=== PATIENT | female | born 1995 | race Hispanic/Latino ===

== ENCOUNTER 2018-02-11 09:34 | Day surgery (SDC) | payer BC, SELFPAY ==
[2018-02-11] MEDS ORDERED: NA CHLORIDE 0.9% 1,000 ML ONE (10:21)
[2018-02-11] MEDS ORDERED: ONDANSETRON 4 MG/2 ML VIAL ONE ×2 (10:21→13:23)
[2018-02-11] MEDS ORDERED: MORPHINE 4 MG/ML SYR ONE (10:21)
[2018-02-11 10:27] LABS: Absolute Lymphocytes (CBC) 1.9 K/uL (0.7-4.9); Absolute Monocytes 0.5 K/uL (0.1-1.3); Absolute Neutrophil 6.8 K/uL (1.8-8.0); Basophils % 0.5 % (0-1.3); Eosinophils % 0.5 % (0-4.4); Hematocrit 42.7 % (36.0-45.0); Lymphocytes % 20.4 % (15.3-44.8); MCH 23.7 pg (27.0-35.0); MCV 75.1 fL (80-100); MPV 9.1 fL (7.6-11.3); Monocytes % 5.7 % (3.3-12.3); RBC Red Blood Cell Count 5.68 M/uL (3.86-4.86)
[2018-02-11] MEDS ORDERED: ONDANSETRON 4 MG/2 ML VIAL IV PRN (10:27)
[2018-02-11] MEDS ORDERED: ACETAMINOPHEN 650MG/RECT SUPP RECT PRN (10:27)
[2018-02-11] MEDS ORDERED: Morphine 2 MG/2 ML SYR IV PRN (10:27)
[2018-02-11 10:33] LABS: Protime INR 0.98
[2018-02-11 10:37] LABS: Potassium 3.5 mEq/L (3.6-5.0)
[2018-02-11] MEDS ORDERED: CEFTRIAXONE 1 GM/NS 50 ML 1 GM/50 ML BAG IV SCH (11:00)
[2018-02-11] MEDS ORDERED: NA CHLORIDE 0.9% 1,000 ML IV SCH (11:00)
--- NOTE | 2018-02-11 11:11 | RAD REPORT ---
EXAM DESCRIPTION: RAD - Abdomen 1 View (KUB) - 02/11/2018 10:42 am CLINICAL HISTORY: Flank pain, abdominal pain, kidney stone history COMPARISON: None. FINDINGS: Bowel gas pattern is non-specific. No obstruction, free air or pneumatosis. No calcificat ions are identifiable overlying the renal shadows. 2 calcifications in the right side of the pelvis a re seen. These are more likely to be phleboliths based on position however a distal right ureteral ca lculus is possible depending on patient's clinical presentation. No significant bony findings IMPRESSION: No renal calculi identified and no ureteral calculi confirmed. 2 calcific densities in the right pelvis are more medial than expected for the ureter but are still p otentially distal ureteral calculi if there are right renal colic symptoms.
--- NOTE | 2018-02-11 11:16 | EDPHYS ---
Physician Documentation [facility] Name: Cecy Castro Age: 22 yrs Sex: Female : 1995 Arrival Date: 02/11/2018 Time: 09:37 Bed 24 Private MD: ED Physician Imani Colunga HPI: 02/11 10:05 This 22 yrs old Female presents to ER via Ambulatory with complaints of cp Possible Kidney Stone. 10:05 The patient complains of pain in the right mid back. cp 10:05 Onset: The symptoms/episode began/occurred last week. Associated signs and symptoms: cp Pertinent positives: nausea, vomiting, Pertinent negatives: fever. Patient reports she was seen at [place] and diagnosed with right ureteral stone this past Saturday. Patient called office of Dr Rico this morning due to continued symptoms and was referred to come to ED. 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 - Social history:: Smoking status: Patient/guardian denies using tobacco, Patient uses alcohol, occasionally. Patient/guardian denies using street drugs. ROS: 10:12 Constitutional: Negative for body aches, chills, fever, poor PO intake. cp 10:12 Eyes: Negative for injury, pain, redness, and discharge. cp 10:12 ENT: Negative for drainage from ear(s), ear pain, sore throat, difficulty swallowing, difficulty handling secretions. 10:12 Cardiovascular: Negative for chest pain, edema, palpitations. 10:12 Respiratory: Negative for cough, shortness of breath, wheezing. 10:12 Abdomen/GI: Positive for abdominal pain, nausea, vomiting, Negative for diarrhea, constipation, anorexia, black/tarry stool, rectal bleeding. 10:12 Back: Positive for flank pain, on the right. 10:12 Skin: Negative for cellulitis, rash. 10:12 Neuro: Negative for altered mental status, headache, weakness. 10:12 All other systems are negative. Exam: 10:15 Constitutional: The patient appears in no acute distress, alert, awake, non-toxic, well cp developed, well nourished, uncomfortable. 10:15 Head/Face: Normocephalic, atraumatic. cp 10:15 Eyes: Periorbital structures: appear normal, Conjunctiva: normal, no exudate, no injection, Lids and lashes: appear normal, bilaterally. 10:15 ENT: External ear(s): are unremarkable, Nose: is normal, Mouth: is normal, Posterior pharynx: is normal, airway is patent, no erythema, no exudate. 10:15 Neck: ROM/movement: is normal, is supple, without pain, no range of motions limitations, no nuchal rigidity. 10:15 Chest/axilla: Inspection: normal, Palpation: is normal, no crepitus, no tenderness. 10:15 Cardiovascular: Rate: normal, Rhythm: regular, Heart sounds: murmur, not appreciated, Edema: is not appreciated. 10:15 Respiratory: the patient does not display signs of respiratory distress, Respirations: normal, no use of accessory muscles, no retractions, no splinting, no tachypnea, labored breathing, is not present, Breath sounds: are clear throughout, no decreased breath sounds, no stridor, no wheezing. 10:15 Abdomen/GI: Inspection: abdomen appears normal, Bowel sounds: active, all quadrants, Palpation: soft, in all quadrants, moderate abdominal tenderness, in the right upper quadrant and right lower quadrant, rebound tenderness, is not appreciated, voluntary guarding, is elicited in the right upper quadrant and right lower quadrant. 10:15 Back: pain, that is moderate, of the right mid back. 10:15 Skin: cellulitis, is not appreciated, no rash present. 10:15 Neuro: Orientation: to person, place \T\ time. Mentation: is normal. Vital Signs: 09:40 BP 136 / 85; Pulse 76; Resp 15; Temp 98.4; Pulse Ox 99% on R/A; Weight 105.23 kg; ch Height 5 ft. 3 in. (160.02 cm); Pain 5/10; 12:05 BP 143 / 90; Pulse 76; Resp 18; Pulse Ox 100% on R/A; aj1 12:51 BP 133 / 78; Pulse 73; Resp 18; Pulse Ox 99% ; aj1 09:40 Body Mass Index 41.10 (105.23 kg, 160.02 cm) ch MDM: 09:59 Patient medically screened. cp 10:05 Physician consultation: Darrell Rico MD was contacted at 10:05, would like admission cp per Dr. Pita Ballard MD sees patient in ED. Requests KUB abdomen and test and will schedule patient for immediate surgery. 10:10 Physician consultation: Pita Ballard MD was contacted at 10:10, regarding admission, to cp the operating room, patient's condition. 10:30 Differential diagnosis: nephrolithiasis, pyelonephritis, UTI, diverticulitis, cp pancreatitis. 11:15 Data reviewed: vital signs, nurses notes, lab test result(s), radiologic studies, plain cp films. 11:15 Counseling: I had a detailed discussion with the patient and/or guardian regarding: the cp historical points, exam findings, and any diagnostic results supporting the discharge/admit diagnosis, the need for further work-up and treatment in the hospital. 02/11 10:09 Order name: CBC with Diff cp 02/11 10:09 Order name: BMP cp 02/11 10:09 Order name: PT-INR cp 02/11 10:09 Order name: Ptt, Activated cp 02/11 10:10 Order name: CBC with Automated Diff; Complete Time: 11: EDMS 02/11 11:01 Interpretation: Normal except: RBC 5.68; MCV 75.1; MCH 23.7; MCHC 31.5; RDW 17.1. cp 02/11 10:10 Order name: Basic Metabolic Panel; Complete Time: 11: EDMS 02/11 11:02 Interpretation: Normal except: K 3.5; GFR 80. cp 02/11 10:10 Order name: Protime (+INR); Complete Time: 11: EDMS 02/11 10:10 Order name: PTT, Activated Partial Thromb; Complete Time: 11: EDMS 02/11 10:32 Order name: CBC with Automated Diff EDMS 02/11 10:32 Order name: CBC with Automated Diff EDMS 02/11 10:32 Order name: Comprehensive Metabolic Panel EDMS 02/11 10:32 Order name: Comprehensive Metabolic Panel EDMS 02/11 10:33 Order name: Urine Dipstick--Ancillary (enter results) ag 02/11 10:33 Order name: Urine --Ancillary (enter results) ag 02/11 10:01 Order name: XRAY Abdomen 1 View (KUB); Complete Time: 11:14 cp 02/11 10:01 Order name: Urine Dipstick-Ancillary (obtain specimen); Complete Time: 10:32 cp 02/11 10:01 Order name: Urine Test (obtain specimen); Complete Time: 10:32 cp 02/11 10:01 Order name: IV; Complete Time: 10:32 cp 02/11 10:32 Order name: CONS Physician Consult EDOH 02/11 10:32 Order name: NPO EDOH 02/11 11:02 Order name: NPO; Complete Time: 11:12 cp 02/11 11:04 Order name: Urine Microscopic Only cp Administered Medications: 10:32 Drug: Zofran 4 mg Route: IVP; Site: right antecubital; aj1 12:54 Follow up: Response: No adverse reaction aj1 10:32 Drug: morphine 4 mg Route: IVP; Site: right antecubital; aj1 12:54 Follow up: Response: No adverse reaction aj1 10:32 Drug: NS 0.9% 1000 ml Route: IV; Rate: 125 ml/hr; Site: right antecubital; aj1 12:55 Follow up: IV Status: Infusion continued upon admission; IV Intake: 600ml aj1 12:30 Drug: Potassium Chloride 10 mEq Route: IV; Rate: calculated rate; Site: right aj1 antecubital; 12:55 Follow up: IV Status: Infusion continued upon admission aj1 Disposition: 02/11/18 11:15 Hospitalization ordered by Pita Ballard for Observation. Preliminary diagnosis is Calculus of ureter - Right. - Bed requested for Operating Room. - Status is Observation. aj1 - Condition is Stable. - Problem is an ongoing problem. - Symptoms are unchanged. UTI on Admission? No Addendum: 02/16/2018 19:54 Co-signature as Attending Physician, Imani Colunga MD. m a2 Signatures: Dispatcher [employer] [facility] Shanika Chen RN RN ch Johnson, Angela, RN RN aj1 Parag Nickerson PA PA Imani Wolff MD MD ma2 Corrections: (The following items were deleted from the chart) 02/11 13:08 11:15 Hospitalization Ordered by Pita Ballard MD for Observation. Preliminary diagnosis aj1 is Calculus of ureter - Right. Bed requested for Operating Room. Status is Observation. Condition is Stable. Problem is an ongoing problem. Symptoms are unchanged. UTI on Admission? No. cp
--- NOTE | 2018-02-11 11:16 | ER ---
Nurse's Notes [facility] Name: Cecy Castro Age: 22 yrs Sex: Female : 1995 Arrival Date: 02/11/2018 Time: 09:37 Bed 24 Private MD: Diagnosis: Calculus of ureter-Right Presentation: 02/11 09:38 Presenting complaint: Patient states: dx with kidney stone on Saturday. I callded dr clairta Dickson office and they said to come here. pain still to RLQ, radiating into back. I am taking the pain pills, zofran, flomax, and ibuprofen, i still hurt a lot. Transition of care: patient was not received from another setting of care. Onset of symptoms was February 05, 2018. Initial Sepsis Screen: Does the patient meet any 2 criteria? No. Patient's initial sepsis screen is negative. Does the patient have a suspected source of infection? No. Patient's initial sepsis screen is negative. Care prior to arrival: medications as prescribed. 09:38 Method Of Arrival: Ambulatory 09:38 Acuity: TAISHA 3 Triage Assessment: 09:40 General: Appears in no apparent distress. uncomfortable, Behavior is calm, cooperative, ch appropriate for age. Pain: Complains of pain in posterior aspect of right lateral abdomen and right lower quadrant Pain currently is 5 out of 10 on a pain scale. at worst was 7 out of 10 on a pain scale. 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 - Social history:: Smoking status: Patient/guardian denies using tobacco, Patient uses alcohol, occasionally. Patient/guardian denies using street drugs. Screenin:29 Abuse screen: Denies threats or abuse. Denies injuries from another. Nutritional aj1 screening: No deficits noted. Tuberculosis screening: No symptoms or risk factors identified. 12:53 Fall Risk None identified. aj1 Assessment: 10:00 Reassessment: Dr. Rico at bedside to evaluate patient. Consent obtained by Dr. Rico aj1 and placed on patient's chart. 10:29 General: Appears in no apparent distress. uncomfortable, Behavior is calm, cooperative, aj1 appropriate for age. Pain: Complains of pain in posterior aspect of right lateral abdomen Pain radiates to right lower quadrant Pain currently is 6 out of 10 on a pain scale. Quality of pain is described as sharp, Pain began 6 days ago Is intermittent. Neuro: Level of Consciousness is awake, alert, obeys commands, Oriented to person, place, time, situation, Speech is normal, Facial symmetry appears normal. Cardiovascular: Patient's skin is warm and dry. Respiratory: Airway is patent Respiratory effort is even, unlabored, Respiratory pattern is regular, symmetrical. GI: Abdomen is non-distended, Bowel sounds present X 4 quads. Abd is soft and non tender X 4 quads. Reports nausea, vomiting, Patient currently denies diarrhea. : Denies burning with urination, urinary frequency, urgency. EENT: No signs and/or symptoms were reported regarding the EENT system. Derm: No signs and/or symptoms reported regarding the dermatologic system. Skin is pink, warm \T\ dry. normal. Musculoskeletal: No signs and/or symptoms reported regarding the musculoskeletal system. Circulation, motion, and sensation intact. 11:30 Reassessment: Patient appears in no apparent distress at this time. No changes from aj1 previously documented assessment. Patient and/or family updated on plan of care and expected duration. Pain level reassessed. Patient is alert, oriented x 3, equal unlabored respirations, skin warm/dry/pink. 12:30 Reassessment: Patient appears in no apparent distress at this time. No changes from aj1 previously documented assessment. Patient and/or family updated on plan of care and expected duration. Pain level reassessed. Patient is alert, oriented x 3, equal unlabored respirations, skin warm/dry/pink. 12:52 Reassessment: Patient transported to OR via wheelchair. aj1 Vital Signs: 09:40 BP 136 / 85; Pulse 76; Resp 15; Temp 98.4; Pulse Ox 99% on R/A; Weight 105.23 kg; ch Height 5 ft. 3 in. (160.02 cm); Pain 5/10; 12:05 BP 143 / 90; Pulse 76; Resp 18; Pulse Ox 100% on R/A; aj1 12:51 BP 133 / 78; Pulse 73; Resp 18; Pulse Ox 99% ; aj1 09:40 Body Mass Index 41.10 (105.23 kg, 160.02 cm) ED Course: 09:37 Patient arrived in ED. sb2 09:39 Triage completed. 09:40 Arm band placed on left wrist. Patient placed in waiting room. 09:59 Parag Nickerson PA is PHCP. cp 09:59 Imani Colunga MD is Attending Physician. cp 10:11 Marina Camacho RN is Primary Nurse. aj1 10:29 Patient has correct armband on for positive identification. Bed in low position. Call aj1 light in reach. Side rails up X 1. 10:29 No provider procedures requiring assistance completed. Inserted saline lock: 20 gauge aj1 in right antecubital area, using aseptic technique. Blood collected. 10:35 X-ray completed. Portable x-ray completed in exam room. Patient tolerated procedure jb2 well. 10:36 XRAY Abdomen 1 View (KUB) In Process Unspecified. EDMS 11:15 Pita Ballard MD is Hospitalizing Provider. cp 12:53 Patient admitted, IV remains in place. aj1 Administered Medications: 10:32 Drug: Zofran 4 mg Route: IVP; Site: right antecubital; aj1 12:54 Follow up: Response: No adverse reaction aj1 10:32 Drug: morphine 4 mg Route: IVP; Site: right antecubital; aj1 12:54 Follow up: Response: No adverse reaction aj1 10:32 Drug: NS 0.9% 1000 ml Route: IV; Rate: 125 ml/hr; Site: right antecubital; aj1 12:55 Follow up: IV Status: Infusion continued upon admission; IV Intake: 600ml aj1 12:30 Drug: Potassium Chloride 10 mEq Route: IV; Rate: calculated rate; Site: right aj1 antecubital; 12:55 Follow up: IV Status: Infusion continued upon admission aj1 Intake: 12:55 IV: 600ml; Total: 600ml. aj1 Outcome: 11:15 Decision to Hospitalize by Provider. cp 12:53 Admitted to OR accompanied by nurse, via wheelchair. aj1 12:53 Condition: stable 12:53 Discharge instructions given to patient, Instructed on the need for admit, Demonstrated understanding of instructions. 13:08 Patient left the ED. aj1 Signatures: Dispatcher [employer] EDShanika Lemos, Marina Alvarado RN, ch, RN RN aj1 Jose Cleary2 Parag Nickerson PA PA cp Billeau, Sheri sb2
[2018-02-11] MEDS ORDERED: POTASSIUM CL 10 MEQ in NA CHLORIDE 0.9% 100 ML IV ONE (11:45)
[2018-02-11 12:13] LABS: Urine Blood TRACE (NEG); Urine Glucose NEGATIVE (NEG); Urine Protein NEGATIVE (NEG); Urine pH 6.5 (5.0-7.0)
[2018-02-11 12:39] LABS: Urine Bacteria <20 /HPF (<20); Urine Culture Reflex Order REFLEXED; Urine Mucus 1+ /HPF (NONE SEEN)
[2018-02-11] MEDS ORDERED: BSS OPTHALMIC SOL 15 ML BOT OPTH ONE (13:15)
[2018-02-11] MEDS ORDERED: PROPOFOL 200 MG/20 ML VIAL IV ONE (13:21)
[2018-02-11] MEDS ORDERED: LIDOCAINE 1% MPF 5 ML VIAL ONE (13:22)
[2018-02-11] MEDS ORDERED: MIDAZOLAM HCL 2 MG/2 ML INJ ONE (13:22)
[2018-02-11] MEDS ORDERED: FENTANYL CITR 100 MCG/2 ML ONE (13:23)
[2018-02-11] MEDS ORDERED: CEFTRIAXONE/SWI 1gm 1 GM/10 ML SYR IV SCH (13:30)
[2018-02-11] MEDS ORDERED: PROMETHAZINE 25 MG/ML VIAL ONE (14:45)
[2018-02-11] MEDS: MEPERIDINE HCL 25 MG/0.5 ML ONE ×2 (14:47→14:55)
[2018-02-11] MEDS ORDERED: MEPERIDINE HCL 25 MG/0.5 ML ONE (15:08)
--- NOTE | 2018-02-11 15:10 | CON ---
History Of Present Illness: A pleasant, 22-year-old female, first episode of right renal colic. She went to [facility], did a CT scan showing a 5 mm stone in the right distal ureter with ureteral dilation, perinephric fat stranding. Normal left kidney. No other stone seen. She was sent to my office , where she was having nausea and vomiting constantly, so we sent her to the emergency room. Apparently, this has been going on for about 24 hours now. In the emergency room, I assessed and determined that she needs a right shockwave lithotripsy since the machine is here today. The patient has been n.p.o. overnight. Past Medical History: None. Past Surgical History: None. Allergies: NONE. Medications: None. Social History: Noncontributory. Review of Systems: As mentioned above. No smoking, drinking or alcohol use mentioned. Physical Examination: General: She is afebrile, stable. HEENT: Atraumatic, normocephalic. Chest: Clear. Heart: S1, S2. She has positive right flank tenderness. Extremities: Normal range of motion. Laboratory Data: CT scan as mentioned above. Sodium 138, potassium 3.6, CO2 24, chloride 104, glucose 102, calcium 9.6. BUN 7, creatinine 1.1. LFTs normal. UA showed a specific gravity 1.025, glucose negative, bilirubin small, pH 5.5, nitrite negative, leukocyte esterase small. test negative. She had a CBC showing slightly elevated white count of 12.3, H and H at 13.6 and 40.6, platelets 373. Assessment: A 5 mm right distal ureterolithiasis. Plan: Plan is to do a KUB. Keep patient n.p.o. and consent for right shockwave lithotripsy and any indicated procedures. If the stone is not visible on the KUB, we may need to give her IVP dye versus retrograde to delineate the stone, possible stent. The patient was given all the general information on alternatives and risks. She wishes to proceed. JOSE/DWAYNE Voice ID: [id number] Report ID: [id number] EDITH
[2018-02-11] MEDS ORDERED: HYDROCODONE/APAP 5/325 MG TAB ONE (16:27)
--- NOTE | 2018-02-11 22:16 | HP ---
Date of Admission: 02/11/2018 Consultants: Dr. Rcio with Urology. Pcp: None. History Of Present Illness: The patient is a 22-year-old female with no significant past medical history, who started having right-sided flank pain along with some chills, subjective fever, and pain. The patient also reported some nausea and vomiting. The patient's symptoms are constant, moderate, and progressively worsening. She went to [place] [facility] on Saturday, 4 days prior to admission, and was found to have a 5 mm kidney stone and was sent home. The patient comes back into the ER for worsening pain, nausea, vomiting, and inability to keep any p.o. intake. When the patient came into the ER, her vital signs were stable. She was afebrile. Her workup revealed normal white count. Dr. Rico with Urology was consulted and he recommended stent placement and asked the patient to be admitted under the hospitalist service. When I saw the, she was awake, alert, and oriented x3, in some mild distress. Past Medical History: None. Past Surgical History: None. Allergies: NO KNOWN DRUG ALLERGIES. Medications: None. Family History: Positive for diabetes and hyperlipidemia in the mother and father respectively. Social History: The patient denies any illicit drug use, alcohol use, or tobacco use. Date of last menstrual period was 01/28/2018. Review of Systems: A 10-point system reviewed, negative except as per HPI. Physical Examination: Vital Signs: Stable, afebrile. General: Awake, alert, and oriented x3, in some mild distress, slightly ill- appearing female. HEENT: Normocephalic, atraumatic. PERRLA. EOMI. Moist mucous membranes. Oropharynx is clear. Conjunctivae are anicteric. Neck: Supple. No JVD. Trachea midline. CV: S1, S2. Regular rate and rhythm. Peripheral pulses present. No murmurs. Respiratory: Clear to auscultation bilaterally. No wheezing. No stridor. No use of accessory muscles. Gastrointestinal: Abdomen is soft, nontender, and nondistended. Positive bowel sounds. No guarding or rigidity. No palpable masses. Back: The patient does have some tenderness in the right flank. Extremities: No clubbing, cyanosis, or edema. No calf tenderness. Neuro: Cranial nerves 2 through 12 intact grossly. No focal neurological deficit. Speech is normal. Strength is 5/5 in bilateral upper and lower extremities. Skin: No rashes. Normal skin turgor. Psych: Mood is okay. Affect is full. Insight and judgment are good. Laboratory Data: Sodium 140, potassium 3.5, chloride 105, CO2 28, BUN 7, creatinine 0.89, glucose 98, calcium 9.5, and INR 0.98. WBC 9.3, H and H 13.5 and 42.7, and platelets 326. KUB x-ray pending. Assessment: A 22-year-old female with; 1. Nephrolithiasis on the right. The patient will be going for stent placement by Dr. Rico. We will continue with IV fluids, IV antibiotics, and monitor closely. We will continue with pain control. 2. Morbid obesity. 3. Gastrointestinal and deep venous thrombosis prophylaxis, proton pump inhibitor and sequential compression devices. Plan: Admit the patient to [facility], place as observation. We will follow up with the patient closely postprocedure. ADDENDUM Patient is a 22-year-old female who was admitted for nephrolithiasis and was taking to the OR by Dr. Rico for stent placement. Patient tolerated the procedure well and was cleared for discharge. Patient was discharged from the PACU once she was stable. Patient received IV antibiotics preprocedure. Patient was given pain medications and Flomax and was to follow up with Dr. Jacky ARANDA/DWAYNE Voice ID: [id number] MTDD
== END 2018-02-11 16:45 | disposition home or self-care (01) ==
LOC: ER 09:34 → UNDOADMOB 11:47 → ERHOLD 11:47 → DS 11:58
PROVIDERS: ATTEND Urology
PROC: 0TF6XZZ Fragmentation in Right Ureter, External Approach (ICD-10-PCS; principal; 2018-02-11 12:30)
DX: N20.1 Calculus of ureter (principal); E66.01 Morbid (severe) obesity due to excess calories; Z83.3 Family history of diabetes mellitus
CPT/HCPCS: 36415; 50590; 74018; 80048; 81003; 81015; 81025; 85025; 85610; 85730; 87086; 87088; 96361; 96365; 96375; 99285; J0696; J2175; J2250; J2405; J2550; J3010; J7030

== ENCOUNTER 2018-02-12 17:45 | Inpatient (IN) | payer BC ==
[2018-02-12] MEDS ORDERED: ONDANSETRON 4 MG/2 ML VIAL ONE (18:26)
[2018-02-12] MEDS ORDERED: FAMOTIDINE 20 MG/2 ML VIAL IV ONE (18:26)
[2018-02-12] MEDS ORDERED: NA CHLORIDE 0.9% 1,000 ML ONE (18:26)
[2018-02-12 18:50] LABS: Absolute Lymphocytes (CBC) 1.8 K/uL (0.7-4.9); Absolute Monocytes 1.1 K/uL (0.1-1.3); Absolute Neutrophil 9.3 K/uL (1.8-8.0); Basophils % 0.3 % (0-1.3); Eosinophils % 0.2 % (0-4.4); Hematocrit 42.2 % (36.0-45.0); MCH 23.8 pg (27.0-35.0); MPV 9.2 fL (7.6-11.3); Monocytes % 8.9 % (3.3-12.3)
[2018-02-12 19:02] LABS: Potassium 3.7 mEq/L (3.6-5.0)
[2018-02-12 19:09] LABS: Bilirubin Direct 0.1 mg/dL (0-0.2); Bilirubin Total 0.7 mg/dL (0.3-1.2); Protein, Total 7.1 g/dL (6.0-8.3)
[2018-02-12] MEDS ORDERED: HYDROCODONE/APAP 5/325 MG TAB ONE (19:54)
--- NOTE | 2018-02-12 20:37 | RAD REPORT ---
EXAM DESCRIPTION: RAD - Abdomen 1 View (KUB) - 02/12/2018 8:13 pm CLINICAL HISTORY: Abdomen pain. FINDINGS: The bowel gas pattern is unremarkable. 2 millimeter calcification within the right pelvis may represent a ureteral vesicle junction calculus . It is unchanged from Feb 11 2018
[2018-02-12 20:47] LABS: Urine Bacteria 20-50 /HPF (<20)
[2018-02-12 20:49] LABS: Urine Culture Reflex Order NOT NEEDED
[2018-02-12 20:49] LABS: Urine Blood 1+ (NEG); Urine Glucose NEGATIVE (NEG); Urine Protein 2+ (NEG); Urine pH 7.5 (5.0-7.0)
--- NOTE | 2018-02-12 20:50 | ER ---
Nurse's Notes [facility] Name: Cecy Castro Age: 22 yrs Sex: Female : 1995 Arrival Date: 02/12/2018 Time: 17:48 Bed 24 Private MD: Diagnosis: Calculus of ureter-Right;Other abdominal pain-Intractable Presentation: 02/12 17:51 Presenting complaint: Patient states: Lithotripsy yesterday for kidney stone. Patient aj reports pain medication is making her nauseated. Called Dr Rico and instructed to come to ER. Transition of care: patient was not received from another setting of care. Onset of symptoms was February 11, 2018. Initial Sepsis Screen: Does the patient meet any 2 criteria? No. Patient's initial sepsis screen is negative. Does the patient have a suspected source of infection? No. Patient's initial sepsis screen is negative. Care prior to arrival: None. 17:51 Method Of Arrival: Ambulatory 17:51 Acuity: TAISHA 3 aj Triage Assessment: 17:54 General: Appears in no apparent distress. comfortable, Behavior is calm, cooperative, aj appropriate for age. Pain: Complains of pain in posterior aspect of right lateral abdomen and anterior aspect of right lateral abdomen. Neuro: Level of Consciousness is awake, alert, obeys commands, Oriented to person, place, time, situation, Appropriate for age. Respiratory: Airway is patent Respiratory effort is even, unlabored, Respiratory pattern is regular, symmetrical. GI: Abdomen is obese, Reports nausea. Derm: Skin is intact, is healthy with good turgor, Skin is pink, warm \T\ dry. normal. 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 - Social history:: Smoking status: Patient/guardian denies using tobacco. Screenin:15 Abuse screen: Denies threats or abuse. Denies injuries from another. Nutritional kr2 screening: No deficits noted. Tuberculosis screening: No symptoms or risk factors identified. Fall Risk None identified. Assessment: 18:15 General: Appears in no apparent distress. uncomfortable, well groomed, well developed, kr2 well nourished, Behavior is calm, cooperative. Pain: Complains of pain in left low back, right low back and abdomen Pain does not radiate. Pain currently is 10 out of 10 on a pain scale. Quality of pain is described as aching, sharp, shooting, Pain began gradually, Is continuous, Alleviated by nothing. Neuro: Level of Consciousness is awake, alert, obeys commands, Oriented to person, place, time, situation, Appropriate for age. Cardiovascular: Capillary refill < 3 seconds in bilateral fingers Patient's skin is warm and dry. Respiratory: Airway is patent Respiratory effort is even, unlabored, Respiratory pattern is regular, symmetrical. GI: Bowel sounds present X 4 quads. Abd is soft X 4 quads Abdomen is tender to palpation in right upper quadrant, left upper quadrant, right lower quadrant and left lower quadrant. GI: Reports nausea, vomiting. : Urine is clear. : Reports difficulty urinating. EENT: Oral mucosa is moist. Derm: Skin is intact, is healthy with good turgor, Skin is pink, warm \T\ dry. Musculoskeletal: Circulation, motion, and sensation intact. 19:15 Reassessment: Patient appears in no apparent distress at this time. Patient and/or kr2 family updated on plan of care and expected duration. Pain level reassessed. Patient is alert, oriented x 3, equal unlabored respirations, skin warm/dry/pink. 20:30 Reassessment: Patient appears in no apparent distress at this time. Patient and/or kr2 family updated on plan of care and expected duration. Pain level reassessed. Patient is alert, oriented x 3, equal unlabored respirations, skin warm/dry/pink. Patient states feeling better. 21:35 Reassessment: No changes from previously documented assessment. kr2 22:28 Reassessment: Patient appears in no apparent distress at this time. Patient and/or kr2 family updated on plan of care and expected duration. Pain level reassessed. Patient is alert, oriented x 3, equal unlabored respirations, skin warm/dry/pink. Patient states symptoms have improved. 22:47 Reassessment: Patient appears in no apparent distress at this time. Patient and/or kr2 family updated on plan of care and expected duration. Pain level reassessed. Patient is alert, oriented x 3, equal unlabored respirations, skin warm/dry/pink. Patient states her pain is starting to return. Medicated per Dr. Null's admitting orders. Documented in [employer] system. Vital Signs: 17:54 BP 119 / 82; Pulse 88; Resp 18; Temp 98.2; Pulse Ox 100% on R/A; Weight 105.23 kg; aj Height 5 ft. 3 in. (160.02 cm); 19:00 BP 122 / 78; Pulse 84; Resp 16; Pulse Ox 99% on R/A; kr2 20:00 BP 130 / 80; Pulse 80; Resp 16; Pulse Ox 99% on R/A; kr2 21:32 BP 134 / 99; Pulse 80; Resp 17; Pulse Ox 100% on R/A; kr2 23:02 BP 133 / 93; Pulse 91; Resp 18; Pulse Ox 99% on R/A; kr2 17:54 Body Mass Index 41.10 (105.23 kg, 160.02 cm) aj ED Course: 17:48 Patient arrived in ED. mr 17:52 Triage completed. aj 17:54 Arm band placed on left wrist. Patient placed in waiting room. aj 18:13 Parag Nickerson PA is PHCP. cp 18:13 Jaxson Amado MD is Attending Physician. cp 18:15 Patient has correct armband on for positive identification. Bed in low position. Call kr2 light in reach. Side rails up X2. Adult w/ patient. Pulse ox on. NIBP on. Door closed. Warm blanket given. Head of bed elevated. 18:24 Elsie Dawson, HERMINIO is Primary Nurse. kr2 18:30 Inserted saline lock: 22 gauge in left antecubital area, using aseptic technique. Blood kr2 collected. 20:06 Patient moved to radiology via wheelchair. kc2 20:06 X-ray completed. Patient tolerated procedure well. kc2 20:06 Patient moved back from radiology. kc2 20:07 XRAY KUB In Process Unspecified. EDMS 20:49 Aida Corona MD is Hospitalizing Provider. cp 23:48 No provider procedures requiring assistance completed. Patient admitted, IV remains in kr2 place. Administered Medications: 18:45 Drug: Zofran 4 mg Route: IVP; Site: left antecubital; kr2 19:00 Follow up: Response: No adverse reaction; Nausea is decreased kr2 18:45 Drug: Pepcid 20 mg Route: IVP; Site: left antecubital; kr2 22:19 Follow up: Response: No adverse reaction kr2 19:17 Drug: NS 0.9% 1000 ml Route: IV; Rate: 1 bolus; Site: left antecubital; kr2 20:15 Follow up: Response: No adverse reaction; IV Status: Completed infusion kr2 19:57 Drug: Herrin 5 mg-325 mg 1 tabs Route: PO; kr2 22:19 Follow up: Response: No adverse reaction; Pain is decreased kr2 21:17 Drug: Rocephin - (cefTRIAXone) 1 grams Route: IVPB; Infused Over: 30 mins; Site: left kr2 antecubital; 21:45 Follow up: Response: No adverse reaction; IV Status: Completed infusion kr2 21:17 Drug: morphine 4 mg Route: IVP; Site: left antecubital; kr2 21:30 Follow up: Response: No adverse reaction; Pain is decreased kr2 Outcome: 20:50 Decision to Hospitalize by Provider. cp 23:48 Admitted to Med/surg accompanied by tech, family with patient, via wheelchair, room kr2 212, with chart, Report called to [place] 23:48 Condition: good 23:48 Patient left the ED. kr2 Signatures: Dispatcher [employer] EDSirisha Naik, Shannon Bridges RN mr Parag Nickerson PA PA cp Carr, Kelsie kc2 Elsie Dawson RN RN kr2 Corrections: (The following items were deleted from the chart) : 22:15 General: Appears kr2 kr2
--- NOTE | 2018-02-12 20:50 | EDPHYS ---
Physician Documentation [facility] Name: Cecy Castro Age: 22 yrs Sex: Female : 1995 Arrival Date: 02/12/2018 Time: 17:48 Bed 24 Private MD: ED Physician Jaxson Amado HPI: 02/12 18:30 This 22 yrs old Female presents to ER via Ambulatory with complaints of cp Abdominal Pain. 18:30 The patient presents with abdominal pain in the right upper quadrant, right lower cp quadrant. Onset: The symptoms/episode began/occurred last week. The symptoms radiate to the right flank. Associated signs and symptoms: Pertinent positives: nausea, vomiting. The symptoms are described as constant. Severity of pain: in the emergency department the pain is unchanged despite home interventions. Patient seen in ED for calculus of right ureter yesterday and admitted for lithotripsy procedure. Patient reports continued pain, nausea and vomiting. Patient reports she has been unable to tolerate pain meds due to vomiting. 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 - Social history:: Smoking status: Patient/guardian denies using tobacco. ROS: 18:35 Constitutional: Negative for body aches, chills, fever, poor PO intake. cp 18:35 Eyes: Negative for injury, pain, redness, and discharge. cp 18:35 ENT: Negative for drainage from ear(s), ear pain, sore throat, difficulty swallowing, difficulty handling secretions. 18:35 Cardiovascular: Negative for chest pain, edema, palpitations. 18:35 Respiratory: Negative for cough, shortness of breath, wheezing. 18:35 Abdomen/GI: Positive for abdominal pain, nausea, vomiting, of the posterior aspect of right lateral abdomen, anterior aspect of right lateral abdomen, right upper quadrant and right lower quadrant, Negative for diarrhea, black/tarry stool, rectal bleeding. 18:35 Back: Positive for flank pain, on the right. 18:35 : Negative for vaginal bleeding, vaginal discharge. 18:35 Skin: Negative for cellulitis, rash. 18:35 Neuro: Negative for altered mental status, headache, weakness. 18:35 All other systems are negative. Exam: 18:42 Constitutional: The patient appears in no acute distress, alert, awake, non-toxic, well cp developed, well nourished, uncomfortable. 18:42 Head/Face: Normocephalic, atraumatic. Eyes: Pupils equal round and reactive to light, cp extra-ocular motions intact. Lids and lashes normal. Conjunctiva and sclera are non-icteric and not injected. Cornea within normal limits. Periorbital areas with no swelling, redness, or edema. ENT: Nares patent. No nasal discharge, no septal abnormalities noted. Tympanic membranes are normal and external auditory canals are clear. Oropharynx with no redness, swelling, or masses, exudates, or evidence of obstruction, uvula midline. Mucous membranes moist. Chest/axilla: Normal chest wall appearance and motion. Nontender with no deformity. No lesions are appreciated. 18:42 Cardiovascular: Rate: normal, Rhythm: regular, Edema: is not appreciated, JVD: is not appreciated. 18:42 Respiratory: the patient does not display signs of respiratory distress, Respirations: normal, no use of accessory muscles, no retractions, no splinting, no tachypnea, labored breathing, is not present, Breath sounds: are clear throughout, no decreased breath sounds, no stridor, no wheezing. 18:42 Abdomen/GI: Inspection: abdomen appears normal, Bowel sounds: active, all quadrants, Palpation: soft, in all quadrants, moderate abdominal tenderness, in the posterior aspect of right lateral abdomen, anterior aspect of right lateral abdomen, right upper quadrant and right lower quadrant, rebound tenderness, is not appreciated, voluntary guarding, is elicited in the posterior aspect of right lateral abdomen, anterior aspect of right lateral abdomen, right upper quadrant and right lower quadrant. 18:42 Back: CVA tenderness, is noted on the right. 18:42 Skin: cellulitis, is not appreciated, no rash present. 18:42 Neuro: Orientation: to person, place \T\ time. Mentation: lucid, able to follow commands, Cerebellar function: is grossly normal, Motor: moves all fours, strength is normal, Sensation: no obvious gross deficits. Vital Signs: 17:54 BP 119 / 82; Pulse 88; Resp 18; Temp 98.2; Pulse Ox 100% on R/A; Weight 105.23 kg; aj Height 5 ft. 3 in. (160.02 cm); 19:00 BP 122 / 78; Pulse 84; Resp 16; Pulse Ox 99% on R/A; kr2 20:00 BP 130 / 80; Pulse 80; Resp 16; Pulse Ox 99% on R/A; kr2 21:32 BP 134 / 99; Pulse 80; Resp 17; Pulse Ox 100% on R/A; kr2 23:02 BP 133 / 93; Pulse 91; Resp 18; Pulse Ox 99% on R/A; kr2 17:54 Body Mass Index 41.10 (105.23 kg, 160.02 cm) aj MDM: 18:13 Patient medically screened. cp 19:00 Differential diagnosis: gastritis, Ovarian Torsion, Pelvic Inflammatory Disease, cp Pyelonephritis, Ureterolithiasis, urinary tract infection. 20:50 Data reviewed: vital signs, nurses notes, lab test result(s), radiologic studies, plain cp films. 20:50 Physician consultation: Darrell Rico MD was contacted at 20:45, regarding consult, cp patient's condition, would like admission per Dr. Aida Corona MD requests patient be admitted to hospitalist for pain control and will see patient in morning. 02/12 18:23 Order name: Basic Metabolic Panel; Complete Time: 19:24 cp 02/12 19:25 Interpretation: Normal except: CL 100; CRE 1.29; GFR 52. cp 02/12 18:23 Order name: CBC with Diff; Complete Time: 19:24 cp 02/12 19:25 Interpretation: Normal except: WBC 12.3; RBC 5.70; MCV 74.0; MCH 23.8; RDW 16.9; DEEP% cp 75.6; LYM% 15.0; NEUT A 9.3. 02/12 18:23 Order name: Creatinine for Radiology; Complete Time: 19:24 cp 02/12 19:25 Interpretation: Normal except: CRE 1.28; GFR 53. cp 02/12 18:23 Order name: Hepatic Function; Complete Time: 19:24 cp 02/12 18:23 Order name: Lipase; Complete Time: 19:24 cp 02/12 18:39 Order name: Urine Dipstick--Ancillary (enter results); Complete Time: 20:50 mw2 02/12 18:39 Order name: Urine --Ancillary (enter results); Complete Time: 20:50 mw2 02/12 19:36 Order name: Urine Microscopic Only; Complete Time: 20:50 cp 02/12 20:50 Interpretation: Normal except: UWBC 5-10; URBC 5-10; UBACT 20-50; SQEPI 5-10. cp 02/12 19:36 Order name: SHELBIE CORNELIUSB; Complete Time: 20:38 cp 02/12 18:23 Order name: Urine Test (obtain specimen); Complete Time: 19:19 cp 02/12 18:23 Order name: IV Saline Lock; Complete Time: 19:19 cp 02/12 18:23 Order name: Labs collected and sent; Complete Time: 19:19 cp 02/12 18:23 Order name: Urine Dipstick-Ancillary (obtain specimen); Complete Time: 19:19 cp 02/12 19:36 Order name: PO challenge; Complete Time: 19:56 cp Administered Medications: 18:45 Drug: Zofran 4 mg Route: IVP; Site: left antecubital; kr2 19:00 Follow up: Response: No adverse reaction; Nausea is decreased kr2 18:45 Drug: Pepcid 20 mg Route: IVP; Site: left antecubital; kr2 22:19 Follow up: Response: No adverse reaction kr2 19:17 Drug: NS 0.9% 1000 ml Route: IV; Rate: 1 bolus; Site: left antecubital; kr2 20:15 Follow up: Response: No adverse reaction; IV Status: Completed infusion kr2 19:57 Drug: [place] 5 mg-325 mg 1 tabs Route: PO; kr2 22:19 Follow up: Response: No adverse reaction; Pain is decreased kr2 21:17 Drug: Rocephin - (cefTRIAXone) 1 grams Route: IVPB; Infused Over: 30 mins; Site: left kr2 antecubital; 21:45 Follow up: Response: No adverse reaction; IV Status: Completed infusion kr2 21:17 Drug: morphine 4 mg Route: IVP; Site: left antecubital; kr2 21:30 Follow up: Response: No adverse reaction; Pain is decreased kr2 Disposition: 02/12/18 20:50 Hospitalization ordered by Aida Corona for Observation. Preliminary diagnosis are Calculus of ureter - Right, Other abdominal pain - Intractable. - Bed requested for Telemetry/MedSurg (observation). - Status is Observation. kr2 - Condition is Stable. - Problem is an ongoing problem. - Symptoms have improved. UTI on Admission? No Addendum: 02/14/2018 07:06 Co-signature as Attending Physician, Jaxson Amado MD I agree with the assessment and w a plan of care. Signatures: Dispatcher [employer] EDMS Allison Tijerina RN RN kl Myers, Amanda, RN RN aj Page, Corey, PA PA cp Appiah, William, MD MD wa Reaves, Karey, RN RN kr2 Corrections: (The following items were deleted from the chart) 02/12 20:50 20:50 Hospitalization Ordered by Aida Corona MD for Observation. Preliminary cp diagnosis is Calculus of ureter - Right; Other abdominal pain - Intractable. Bed requested for Telemetry/MedSurg (observation). Status is Observation. Condition is Stable. Problem is an ongoing problem. Symptoms have improved. UTI on Admission? No. cp 20:50 20:50 02/12/2018 20:50 Hospitalization Ordered by Aida Corona MD for Observation. cp Preliminary diagnosis is Calculus of ureter - Right; Other abdominal pain - Intractable. Bed requested for Telemetry/MedSurg (observation). Status is Observation. Condition is Stable. Problem is an ongoing problem. Symptoms have improved. UTI on Admission? Yes. cp 21:58 20:50 02/12/2018 20:50 Hospitalization Ordered by Aiad Corona MD for Observation. kl Preliminary diagnosis is Calculus of ureter - Right; Other abdominal pain - Intractable. Bed requested for Telemetry/MedSurg (observation). Status is Observation. Condition is Stable. Problem is an ongoing problem. Symptoms have improved. UTI on Admission? No. cp 23:48 21:58 02/12/2018 20:50 Hospitalization Ordered by Aida Corona MD for Observation. kr2 Preliminary diagnosis is Calculus of ureter - Right; Other abdominal pain - Intractable. Bed requested for Telemetry/MedSurg (observation). Status is Observation. Condition is Stable. Problem is an ongoing problem. Symptoms have improved. UTI on Admission? No. kl
[2018-02-12] MEDS ORDERED: CEFTRIAXONE/SWI 1gm 1 GM/10 ML SYR ONE (21:09)
[2018-02-12] MEDS ORDERED: MORPHINE 4 MG/ML SYR ONE ×2 (21:09→22:42)
--- NOTE | 2018-02-12 22:01 | P.HP ---
Certification for Inpatient Patient admitted to: Inpatient With expected LOS: >2 Midnights Practitioner: I am a practitioner with admitting privileges, knowledge of patient current condition, hospital course, and medical plan of care. Services: Services provided to patient in accordance with Admission requirements found in Title 42 Section 412.3 of the Code of Federal Regulations Patient History Date of Service: 02/12/18 Reason for admission: ureterolithiasis History of Present Illness: Ms Castro is a 22 years old woman who was recently admitted to the hospital due to right side ureterolithiasis. She had extracorporeal lithotripsy and was discharged home yesterday. Today she still had significant right flank pain, associated with nausea and vomiting. She denied fever or chills. In ER she was afebrile, lab work remarkable for leukocytosis 12.3K, KUB still shows the same stone than before lithotripsy. UA is abnormal consistent with UTI. Allergies No Known Allergies Allergy (Unverified 02/11/18 11:32) - Past Medical/Surgical History Past Medical History: Reviewed- Non-Contributory Past Surgical History: Reviewed- Non-Contributory - Family History Family History: Reviewed- Non-Contributory - Social History Smoking Status: Never smoker Alcohol use: No CD- Drugs: No Place of Residence: Home Review of Systems 10-point ROS is otherwise unremarkable Physical Examination - Physical Exam General: Alert, In no apparent distress HEENT: Atraumatic, PERRLA, Mucous membr. moist/pink, EOMI, Sclerae nonicteric Neck: Supple, 2+ carotid pulse no bruit, No LAD, Without JVD or thyroid abnormality Respiratory: Clear to auscultation bilaterally, Normal air movement Cardiovascular: Regular rate/rhythm, Normal S1 S2 Gastrointestinal: Normal bowel sounds, Tenderness (right flank) Musculoskeletal: No tenderness Integumentary: No rashes Neurological: Normal speech, Normal strength at 5/5 x4 extr, Normal tone, Normal affect Lymphatics: No axilla or inguinal lymphadenopathy - Studies Laboratory Data (last 24 hrs) 02/12/18 18:35: Creatinine 1.28 H 02/12/18 18:35: WBC 12.3 H D, Hgb 13.5, Hct 42.2, Plt Count 299 02/12/18 18:35: Sodium 137, Potassium 3.7, BUN 9, Creatinine 1.29 H, Glucose 96 , Total Bilirubin 0.7, AST 34, ALT 40, Alkaline Phosphatase 78, Lipase 16 L Assessment and Plan - Problems (Diagnosis) (1) Ureterolithiasis Current Visit: Yes Status: Acute (2) UTI (urinary tract infection) Current Visit: Yes Status: Acute Qualifiers: Urinary tract infection type: acute cystitis Hematuria presence: without hematuria Qualified Code(s): N30.00 - Acute cystitis without hematuria - Plan The patient will be admitted to the hospital due to right ureterolithiasis, UTI. Will start empiric Rocephin IV, consult Dr Rico, keep her NPO after MN for possible cystoscopy in AM. - Advance Directives Does patient have a Living Will: No Does patient have a Durable POA for Healthcare: No - Code Status/Comfort Care Code Status Assessed: Yes Code Status: Full Code
[2018-02-12] MEDS ORDERED: ACETAMINOPHEN 500 MG TAB PO PRN (23:07)
[2018-02-12] MEDS ORDERED: ONDANSETRON 4 MG/2 ML VIAL IV PRN (23:07)
[2018-02-13] MEDS: NA CHLORIDE 0.9% 1,000 ML IV SCH ×3 (01:04→20:42)
[2018-02-13] MEDS: Morphine 2 MG/2 ML SYR IV PRN ×2 (02:32→06:31)
[2018-02-13] MEDS: TRAMADOL HCL 50 MG TAB PO PRN (03:55)
[2018-02-13 05:23] LABS: Absolute Lymphocytes (CBC) 2.1 K/uL (0.7-4.9); Absolute Monocytes 1.3 K/uL (0.1-1.3); Absolute Neutrophil 7.9 K/uL (1.8-8.0); Basophils % 0.3 % (0-1.3); Eosinophils % 0.5 % (0-4.4); Hematocrit 39.6 % (36.0-45.0); Lymphocytes % 18.1 % (15.3-44.8); MCV 75.3 fL (80-100); MPV 9.5 fL (7.6-11.3); Monocytes % 11.4 % (3.3-12.3); RBC Red Blood Cell Count 5.27 M/uL (3.86-4.86)
[2018-02-13 05:46] LABS: Potassium 4.5 mEq/L (3.6-5.0)
[2018-02-13] MEDS ORDERED: CEFTRIAXONE 1 GM/NS 50 ML 1 GM/50 ML BAG IV SCH (09:00)
[2018-02-13] MEDS ORDERED: FENTANYL CITR 100 MCG/2 ML IV PRN (09:05)
[2018-02-13] MEDS ORDERED: GENTAMICIN 80 MG/100 ML BAG 80 MG/100 ML BAG IV ONE (11:49)
[2018-02-13] MEDS ORDERED: Ringers Lactate 1,000 ML IV ONE (11:50)
[2018-02-13] MEDS ORDERED: SCOPOLAMINE HYDROBROMIDE PATCH TD ONE (11:54)
[2018-02-13] MEDS ORDERED: MIDAZOLAM HCL 2 MG/2 ML INJ ONE (12:07)
[2018-02-13] MEDS ORDERED: FENTANYL CITR 100 MCG/2 ML ONE (12:07)
[2018-02-13] MEDS ORDERED: PROPOFOL 200 MG/20 ML VIAL IV ONE (12:07)
[2018-02-13] MEDS ORDERED: LIDOCAINE 1% MPF 5 ML VIAL ONE (12:08)
[2018-02-13] MEDS ORDERED: DEXAMETHASONE 10 MG/ML VIAL ONE (12:36)
--- NOTE | 2018-02-13 13:07 | RAD REPORT ---
EXAM DESCRIPTION: RAD - Urethrocystogrphy Retrograde - 02/13/2018 1:01 pm FINDINGS: Abdominal fluoroscopy performed. Multiple cine loop fluoroscopic images acquired during fluoroscopic assisted placement of a ureteral stent. No suspicious or unexpected finding.
--- NOTE | 2018-02-13 16:07 | PN ---
Date of Progress Note: 02/13/2018 Subjective: The patient seen and examined. Chart reviewed and case discussed with RN. The patient recently discharged after stent placement by Dr. Rico, comes in again with worsening pain, nausea, v omiting. Review of Systems: Negative except as above. Medications: Reviewed. Physical Examination: Vital Signs: Temperature 98, heart rate 77, blood pressure 143/93, respirations 18, O2 99% on room a ir. General: Awake, alert, oriented x3, in mild distress. Morbidly obese, BMI 40. Ill-appearing. CV: S1, S2. Regular rate and rhythm. Peripheral pulses present. No murmurs. Respiratory: Clear to auscultation bilaterally. No wheezing. No stridor. No use of accessory musc les. Gastrointestinal: Abdomen is soft. Mild tenderness to palpation in the epigastric region and the ri ght suprapubic region. Some mild rebound tenderness. No guarding or rigidity. Extremities: No clubbing, cyanosis, edema. Neurologic: Nonfocal. Laboratory Data: Sodium 136, potassium 4.5, chloride 105, CO2 25, BUN 8, creatinine 1.24, glucose 90 , calcium 9.1. WBC 11.4, H and H 12.6 and 39.6, platelets 260, neutrophils 69%. Urine bridget t is negative. Urethrocystography retrograde showed no suspicious or unexpected finding. Assessment And Plan: A 22-year-old female with: 1.Ureterolithiasis. 2.Urinary tract infection, acute cystitis without hematuria. We will continue on antibiotics. 3.Morbid obesity, BMI 40.7. Plan: We will adjust pain medications and follow up with Dr. Rico's recommendations. /DWAYNE Voice ID: [id number] Report ID: [id number]
--- NOTE | 2018-02-13 17:19 | CON ---
History Of Present Illness: This is a pleasant lady, who came into the emergency room 2 days ago wit h high-grade obstruction, 8 mm stone on the right side. She is status post extracorporeal shock wave lithotripsy. The stone appeared to have broken up well and the dye was passing through the IV dye s he received from the CAT scan, so we decided not to leave a stent till that time. She went home the next day. Yesterday she called. She was having some nausea and vomiting. She was given Zofran, but she was unable to tolerate the Zofran, so she was brought in for hydration. KUB revealed that the s tone is now 5 mm, so she was brought in for comfort care and overnight she is required to have increa se in pain medication from morphine to fentanyl, so she is going to need a stent placement. Past Medical History: Noncontributory. Past Surgical History: Noncontributory. Assessment And Plan: Urolithiasis, status post extracorporeal shock wave lithotripsy. Plan: Plan is for cystoscopy and stent placement on the right. The patient received all the informa tion, alternatives and risks, and wishes to proceed. JOSE/DWAYNE Voice ID: [id number] Report ID: [id number]
[2018-02-13] MEDS ORDERED: CEFTRIAXONE/SWI 1gm 1 GM/10 ML SYR IV SCH (21:00)
[2018-02-14] MEDS: TRAMADOL HCL 50 MG TAB PO PRN (01:58)
[2018-02-14] MEDS: NA CHLORIDE 0.9% 1,000 ML IV SCH (05:07)
[2018-02-14 06:43] LABS: Absolute Lymphocytes (CBC) 1.6 K/uL (0.7-4.9); Absolute Monocytes 0.7 K/uL (0.1-1.3); Absolute Neutrophil 8.6 K/uL (1.8-8.0); Basophils % 0.4 % (0-1.3); Hematocrit 39.2 % (36.0-45.0); Lymphocytes % 14.5 % (15.3-44.8); MCH 23.9 pg (27.0-35.0); MCV 75.9 fL (80-100); MPV 9.8 fL (7.6-11.3); Monocytes % 6.2 % (3.3-12.3); RBC Red Blood Cell Count 5.16 M/uL (3.86-4.86)
[2018-02-14 07:04] LABS: Potassium 4.5 mEq/L (3.6-5.0)
[2018-02-14] MEDS ORDERED: PANTOPRAZOLE 40MG TABLET PO SCH (08:11)
--- NOTE | 2018-02-14 12:58 | DS ---
Date of Discharge: 02/14/2018 Consultants: Dr. Rico. Procedures: Stent placement and basket stone removal, cystoscopy, right ureteroscopy. Admitting Diagnoses: 1.Right ureterolithiasis. 2.Urinary tract infection. 3.Acute cystitis without hematuria. Discharge Diagnoses: 1.Right ureterolithiasis, status post stent and stone extraction. 2.Urinary tract infection and acute cystitis without hematuria. Urine culture from previous visit, no growth to date. Repeat culture also negative. 3.Morbid obesity, body mass index 40. 4.Gastroesophageal reflux disease. We will initiate a trial of PPI. Hospital Course: The patient is a 22-year-old female, who was recently discharged from the hospital and had a procedure done by Dr. Rico for right-sided ureterolithiasis. She had extracorporeal litho tripsy and was discharged, however, came back to the ER for fever, chills, elevated white blood cell count, and abnormal UA, consistent with UTI. The patient was seen by Dr. Rico's, taken for the proc edures mentioned above. Did well postoperatively. Her pain resolved. Did not have any further naus ea or vomiting. She is able to tolerate her diet. She was then cleared for discharge from a urology standpoint. She was at home in a stable condition. Medications: As per medication reconciliation list. Followup: Follow up with primary care physician in 2-3 days. Follow up with urologist, Dr. Rico in 2 weeks. Return to ER for worsening condition. Diet: Regular calorie controlled diet. Activity: No operating heavy machinery or driving while on narcotics. Total time spent discharging the patient was 35 minutes. The patient was counseled on gastroesophage al reflux symptoms and how to avoid worsening symptoms. She does take [id number] omeprazole. Encouraged to take 1 month trial and to follow up with GI to rule out ulcer. Likely has worsening re flux due to her morbid obesity. SA/MODL Voice ID: [id number] Report ID: [id number]
== END 2018-02-14 10:34 | disposition home or self-care (01) | DRG 669 ==
LOC: ER 17:45 → 2ND 20:50 → OBSVTOIN 02-13 14:26
PROVIDERS: ADMIT Internal Medicine; ATTEND Family Medicine
PROC: 0T768DZ Dilation of Right Ureter with Intraluminal Device, Via Natural or Artificial Opening Endoscopic (ICD-10-PCS; 2018-02-13)
PROC: 0TC68ZZ Extirpation of Matter from Right Ureter, Via Natural or Artificial Opening Endoscopic (ICD-10-PCS; principal; 2018-02-13 12:00)
DX: N20.1 Calculus of ureter (principal); N30.00 Acute cystitis without hematuria; Z68.41 Body mass index [BMI] 40.0-44.9, adult; E66.01 Morbid (severe) obesity due to excess calories; K21.9 Gastro-esophageal reflux disease without esophagitis; Z98.890 Other specified postprocedural states
CPT/HCPCS: 36415; 51610; 74018; 74450; 80048; 80076; 81003; 81015; 81025; 82360; 83690; 85025; 87086; 87088; 88300; 96361; 96365; 96375; 99285; G0378; J0696; J1100; J1580; J2250; J2270; J2405; J3010; J7030; Q9967

== ENCOUNTER 2019-09-18 19:00 | Emergency (ER) | payer OTHER ==
[2019-09-18 20:21] LABS: Absolute Lymphocytes (CBC) 2.8 K/uL (0.7-4.9); Basophils % 1.4 % (0-1.3); Hematocrit 37.6 % (36.0-45.0); Lymphocytes % 31.6 % (15.3-44.8); MPV 9.3 fL (7.6-11.3); RBC Red Blood Cell Count 4.91 M/uL (3.86-4.86)
[2019-09-18 20:58] LABS: ALT/SGPT 19 U/L (12-78); AST/SGOT 21 U/L (15-37); Albumin 3.5 g/dL (3.4-5.0); Alkaline Phosphatase 116 U/L (45-117); BUN Blood Urea Nitrogen 6 mg/dL (7-18); Bicarbonate 25 mmol/L (21-32); Bilirubin Direct < 0.1 mg/dL (0-0.2); Bilirubin Total 0.3 mg/dL (0.2-1.0); Glucose Level 88 mg/dL (74-106); Lipase 57 U/L (73-393); Potassium 4.2 mmol/L (3.5-5.1); Protein, Total 7.3 g/dL (6.4-8.2); Sodium Level 141 mmol/L (136-145)
[2019-09-18] MEDS ORDERED: ONDANSETRON 4 MG/2 ML VIAL ONE (21:55)
--- NOTE | 2019-09-18 22:02 | EDPHYS ---
Physician Documentation [facility] Name: Cecy Castro Age: 23 yrs Sex: Female : 1995 Arrival Date: 09/18/2019 Time: 19:04 Bed 13 Private MD: ED Physician Quinten Escobar HPI: 09/18 21:12 This 23 yrs old Female presents to ER via Ambulatory with complaints of Bloody kb Stools, Nausea. 21:12 The patient presents with abdominal pain in the upper abdomen. Onset: The kb symptoms/episode began/occurred today. The symptoms do not radiate. Associated signs and symptoms: Pertinent positives: nausea, vomiting, and diarrhea, blood in stools, constipation. The symptoms are described as dull. Modifying factors: The symptoms are alleviated by nothing, the symptoms are aggravated by vomiting. Severity of pain: At its worst the pain was moderate in the emergency department the pain has resolved. The patient has not experienced similar symptoms in the past. The patient has not recently seen a physician. Pt reports she has had irregular bowel movements with occasional blood in them for a month. Reports she has constipation one day and diarrhea the next. Today she woke up from a nap and had some nausea, vomiting once and had epigastric pain that has since resolved. . 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 - Social history:: Smoking status: Patient uses tobacco products, denies chronic smoking, but will smoke occasionally. - Ebola Screening: : Patient negative for fever greater than or equal to 101.5 degrees Fahrenheit, and additional compatible Ebola Virus Disease symptoms. ROS: 19:43 Constitutional: Negative for fever, chills, and weight loss, Neck: Negative for injury, kb pain, and swelling, Cardiovascular: Negative for chest pain, palpitations, and edema, Respiratory: Negative for shortness of breath, cough, wheezing, and pleuritic chest pain, Back: Negative for injury and pain, : Negative for injury, bleeding, discharge, and swelling, MS/Extremity: Negative for injury and deformity, Skin: Negative for injury, rash, and discoloration, Neuro: Negative for headache, weakness, numbness, tingling, and seizure. 19:43 Abdomen/GI: Positive for abdominal pain, nausea, vomiting, diarrhea, constipation. Exam: 21:11 Constitutional: This is a well developed, well nourished patient who is awake, alert, kb and in no acute distress. Head/Face: Normocephalic, atraumatic. Chest/axilla: Normal chest wall appearance and motion. Nontender with no deformity. No lesions are appreciated. Cardiovascular: Regular rate and rhythm with a normal S1 and S2. No gallops, murmurs, or rubs. Normal PMI, no JVD. No pulse deficits. Respiratory: Lungs have equal breath sounds bilaterally, clear to auscultation and percussion. No rales, rhonchi or wheezes noted. No increased work of breathing, no retractions or nasal flaring. Back: No spinal tenderness. No costovertebral tenderness. Full range of motion. Skin: Warm, dry with normal turgor. Normal color with no rashes, no lesions, and no evidence of cellulitis. MS/ Extremity: Pulses equal, no cyanosis. Neurovascular intact. Full, normal range of motion. Neuro: Awake and alert, GCS 15, oriented to person, place, time, and situation. Cranial nerves II-XII grossly intact. Motor strength 5/5 in all extremities. Sensory grossly intact. Cerebellar exam normal. Normal gait. 21:11 Abdomen/GI: Inspection: abdomen appears normal, Bowel sounds: normal, in all quadrants, Palpation: soft, in all quadrants, mild abdominal tenderness, in the epigastric area. Vital Signs: 19:13 Pulse 85; Resp 17 S; Temp 98.2(O); Pulse Ox 97% on R/A; Weight 94.35 kg (R); Height 5 jd3 ft. 3 in. (160.02 cm) (R); Pain 0/10; 20:00 BP 122 / 66; Pulse 79; Resp 16 S; Pulse Ox 99% on R/A; jd3 21:22 BP 120 / 78 LA; Pulse 81; Resp 16; Pulse Ox 100% ; Pain 0/10; tt1 19:13 Body Mass Index 36.85 (94.35 kg, 160.02 cm) jd3 MDM: 19:20 Patient medically screened. kb 19:43 Data reviewed: vital signs, nurses notes. Data interpreted: Pulse oximetry: on room air kb is 97 %. Interpretation: normal. 22:00 Counseling: I had a detailed discussion with the patient and/or guardian regarding: the kb historical points, exam findings, and any diagnostic results supporting the discharge/admit diagnosis, lab results, radiology results, the need for outpatient follow up, a family practitioner, to return to the emergency department if symptoms worsen or persist or if there are any questions or concerns that arise at home. 09/18 19:46 Order name: Basic Metabolic Panel; Complete Time: 21:00 kb 09/18 19:46 Order name: CBC with Diff; Complete Time: 20:34 kb 09/18 19:46 Order name: Hepatic Function; Complete Time: 21:00 kb 09/18 19:46 Order name: Lipase; Complete Time: 21:00 kb 09/18 20:21 Order name: Urine Dipstick--Ancillary (enter results) ar5 09/18 20:56 Order name: Test, Urine; Complete Time: 21:02 EDMS 09/18 19:46 Order name: IV Saline Lock; Complete Time: 20:01 kb 09/18 19:46 Order name: Labs collected and sent; Complete Time: 20:01 kb 09/18 20:34 Order name: CT Abd/Pelvis - IV Contrast Only kb 09/18 20:48 Order name: Urine Test (obtain specimen); Complete Time: 20:52 ar5 Administered Medications: 22:01 Drug: Zofran 4 mg Route: IVP; Site: right forearm; sr6 22:10 Follow up: Response: No adverse reaction; Nausea is decreased sr6 Disposition: 09/19 07:26 Co-signature as Attending Physician, Quinten Escobar MD I agree with the assessment and kdr plan of care. Disposition: 09/18/19 22:01 Discharged to Home. Impression: Upper abdominal pain, unspecified, Diarrhea, unspecified, Constipation. - Condition is Stable. - Discharge Instructions: Food Choices to Help Relieve Diarrhea, Adult, Irritable Bowel Syndrome, Adult, Abdominal Pain, Adult, [id number]. - Medication Reconciliation Form, Thank You Letter, Antibiotic Education, Prescription Opioid Use form. - Follow up: Emergency Department; When: As needed; Reason: Worsening of condition. Follow up: Private Physician; When: 2 - 3 days; Reason: Recheck today's complaints, Continuance of care, Re-evaluation by your physician. Signatures: Dispatcher [employer] EDMS Kenia Wilson, JIETNDRAC BEEF TRIMMER-Quinten Maguire MD MD [facility] eDlfina Zendejas Jonathon, RN RN Omayra Albert Sharlyn sr6 Corrections: (The following items were deleted from the chart) 09/18 21:11 19:43 Abdomen/GI: Positive for abdominal pain, nausea, vomiting, diarrhea, kb constipation, kb 22:20 22:01 09/18/2019 22:01 Discharged to Home. Impression: Upper abdominal pain, wh unspecified; Diarrhea, unspecified; Constipation. Condition is Stable. Forms are Medication Reconciliation Form, Thank You Letter, Antibiotic Education, Prescription Opioid Use. Follow up: Emergency Department; When: As needed; Reason: Worsening of condition. Follow up: Private Physician; When: 2 - 3 days; Reason: Recheck today's complaints, Continuance of care, Re-evaluation by your physician. kb
--- NOTE | 2019-09-18 22:02 | ER ---
Nurse's Notes [facility] Name: Cecy Castro Age: 23 yrs Sex: Female : 1995 Arrival Date: 09/18/2019 Time: 19:04 Bed 13 Private MD: Diagnosis: Upper abdominal pain, unspecified;Diarrhea, unspecified;Constipation Presentation: 09/18 19:10 Presenting complaint: Patient states: "I have been having irregular bowel movements for jd3 the past couple of months. I am also having bloody stool on and off for about a month.". Transition of care: patient was not received from another setting of care. Onset of symptoms was September 18, 2019. Risk Assessment: Do you want to hurt yourself or someone else? Patient reports no desire to harm self or others. Initial Sepsis Screen: Does the patient meet any 2 criteria? No. Patient's initial sepsis screen is negative. Does the patient have a suspected source of infection? No. Patient's initial sepsis screen is negative. Care prior to arrival: None. 19:10 Method Of Arrival: Ambulatory j 19:10 Method Of Arrival: Ambulatory [facility] 19:10 Acuity: TAISHA 3 jd3 Triage Assessment: 19:15 Pain: Denies pain. GI: Reports constipation, diarrhea, bloody stool, Patient currently jd3 denies nausea, pain. 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 - Social history:: Smoking status: Patient uses tobacco products, denies chronic smoking, but will smoke occasionally. - Ebola Screening: : Patient negative for fever greater than or equal to 101.5 degrees Fahrenheit, and additional compatible Ebola Virus Disease symptoms. Screenin:16 Abuse screen: Denies threats or abuse. Nutritional screening: No deficits noted. jd3 Tuberculosis screening: No symptoms or risk factors identified. Fall Risk Ambulatory Aid- None/Bed Rest/Nurse Assist (0 pts). Gait- Normal/Bed Rest/Wheelchair (0 pts) Mental Status- Oriented to own ability (0 pts). Total Kang Fall Scale indicates No Risk (0-24 pts). Assessment: 19:45 General: Appears in no apparent distress. Behavior is calm, cooperative, appropriate wh for age. Pain: Denies pain. Neuro: Level of Consciousness is awake, alert, obeys commands, Oriented to person, place, time, situation, Appropriate for age. Cardiovascular: Heart tones S1 S2. Respiratory: Airway is patent Respiratory effort is even, unlabored, Respiratory pattern is regular, symmetrical, Breath sounds are clear bilaterally. GI: Abdomen is flat, non-distended, Bowel sounds present X 4 quads. Abd is soft and non tender X 4 quads. GI: Reports diarrhea, bloody stool. : No signs and/or symptoms were reported regarding the genitourinary system. EENT: No signs and/or symptoms were reported regarding the EENT system. Derm: Skin is intact, is healthy with good turgor, Skin is pink, warm \\T\\ dry. normal. Musculoskeletal: Circulation, motion, and sensation intact. 20:30 Reassessment: Patient appears in no apparent distress at this time. No changes from previously documented assessment. Patient and/or family updated on plan of care and expected duration. Pain level reassessed. Patient is alert, oriented x 3, equal unlabored respirations, skin warm/dry/pink. 21:30 Reassessment: Patient appears in no apparent distress at this time. No changes from previously documented assessment. Patient and/or family updated on plan of care and expected duration. Pain level reassessed. Patient is alert, oriented x 3, equal unlabored respirations, skin warm/dry/pink. Vital Signs: 19:13 Pulse 85; Resp 17 S; Temp 98.2(O); Pulse Ox 97% on R/A; Weight 94.35 kg (R); Height 5 jd3 ft. 3 in. (160.02 cm) (R); Pain 0/10; 20:00 BP 122 / 66; Pulse 79; Resp 16 S; Pulse Ox 99% on R/A; jd3 21:22 BP 120 / 78 LA; Pulse 81; Resp 16; Pulse Ox 100% ; Pain 0/10; tt1 19:13 Body Mass Index 36.85 (94.35 kg, 160.02 cm) jd3 ED Course: 19:04 Patient arrived in ED. mr 19:12 Triage completed. jd3 19:14 Arm band placed on. jd3 19:20 Kenia Wilson FNP-C is [facility]. kb 19:20 Quinten Escobar MD is Attending Physician. kb 19:45 Patient has correct armband on for positive identification. Placed in gown. Bed in low wh position. Call light in reach. Side rails up X 1. Pulse ox on. NIBP on. 20:00 Inserted saline lock: 20 gauge in right antecubital area, using aseptic technique. Blood collected. 20:01 Delfina Zendejas is Primary Nurse. 20:30 Lab(s) recollected, by me, sent to lab. tt1 20:36 Radiology exam delayed due to lab results not completed at this time. (BUN/Creatinine). vm2 21:22 CT Abd/Pelvis - IV Contrast Only In Process Unspecified. EDMS 22:14 No provider procedures requiring assistance completed. IV discontinued. sr6 Administered Medications: 22:01 Drug: Zofran 4 mg Route: IVP; Site: right forearm; sr6 22:10 Follow up: Response: No adverse reaction; Nausea is decreased sr6 Outcome: 22:01 Discharge ordered by . kb 22:15 Discharged to home ambulatory, with family. sr6 22:15 Condition: good 22:15 Discharge instructions given to patient, family, Instructed on discharge instructions, follow up and referral plans. 22:20 Patient left the ED. Signatures: Dispatcher [employer] EDMS Kenia Wilson FNP-C SAMPLER AND TEST PREPARER-Dexter Nayeli Hernandez Tracy tt1 Aline Cisse vm2 Delfina Zendejas Sriram Moreno RN RN Mary Kay Wong sr6 Corrections: (The following items were deleted from the chart) 19:15 19:13 Pulse 85bpm; Resp 17bpm; Spontaneous; Pulse Ox 97% RA; Temp 98.2F Oral; 94.35 kg jd3 Reported; Height 5 ft. 3 in. Reported; BMI: 36.8; Pain 0/10; jd3
[2019-09-18 22:04] LABS: Urine Blood NEGATIVE (NEG); Urine Glucose NEGATIVE (NEG); Urine Protein NEGATIVE (NEG); Urine Specific Gravity 1.025 (1.005-1.030)
[2019-09-18 22:54] VITALS: TEMP 98.2
[2019-09-18 22:57] VITALS: BP 120/78; O2SAT 100
--- NOTE | 2019-09-22 14:48 | RAD REPORT ---
EXAM DESCRIPTION: CT - Abdomen Pelvis W Contrast - 09/19/2019 6:18 am CLINICAL HISTORY: Pain, bloody stools TECHNIQUE: Contiguous axial images obtained through the abdomen and pelvis following the uneventful administration of IV contrast. Coronal and sagittal reformatted images were provided. This exam was performed according to our departmental dose-optimization program, which includes autom ated exposure control, adjustment of the mA and/or kV according to patient size and/or use of iterati ve reconstruction technique. COMPARISON: None available for comparison. FINDINGS: Lung bases: Clear Liver: Unremarkable Gallbladder and biliary system: Unremarkable Pancreas: Unremarkable Spleen: Unremarkable Adrenals: Unremarkable Kidneys: Normal renal cortical enhancement. No calculi. No hydronephrosis. Bowel: No obstruction. No appreciable mucosal thickening. Appendix: Normal caliber appendix. No findings to suggest acute appendicitis. Urinary bladder: The urinary bladder is decompressed. Reproductive: Unremarkable as visualized Lymph nodes: No pathologically enlarged lymph nodes. Peritoneum: Minimal free fluid within the cul-de-sac.. No free air. Vessels: No abdominal aortic aneurysm. Abdominal wall: Tiny fat-containing umbilical hernia. Bones: Unremarkable IMPRESSION: No acute inflammatory process identified within the abdomen and pelvis. Electronically signed by: Jose Hercules MD 09/18/2019 9:37 PM JUSTOWRITER OPERATOR Due to temporary technical issues with the PACS/Fluency reporting system, reports are being signed by the in house radiologist as a courtesy to ensure prompt reporting. The interpreting radiologist is f ully responsible for the content of the report.
== END 2019-09-18 22:20 | disposition home or self-care (01) ==
LOC: ER 19:00
DX: R19.7 Diarrhea, unspecified (principal); K59.00 Constipation, unspecified; Z72.0 Tobacco use; Z87.442 Personal history of urinary calculi
CPT/HCPCS: 85025; 80048; 36415; 81025; 80076; 81003; 83690; 74177; 96374; 99284; Q9967; J2405